=== PATIENT | female | born 1960 | race Caucasian/White ===

== ENCOUNTER 2020-12-19 22:06 | Emergency (ER) | payer OTHER ==
[~2020-12-19] VITALS: Ht 167.6 cm; Wt 96.8 kg
--- NOTE | 2020-12-19 22:10 | PHYS DOC ---
General Adult HPI: HPI: ".. I ve been having really bad abdomen pain.. nausea.. did eat some chip beef before it started..." Patient is a 60 year old female who presents with above hx and complaints right upper quadrant abdomen pain. Pain started right after eating chipped beef. Patient denies any intake of bad food. No history of previous gallbladder disease. No history of gastritis. Normally follows at [place]. No history recent travel. No history of severe ill contacts. No family history of gallbladder disease. Review of Systems: Review of Systems: Constitutional: Denies fever or chills Eyes: Denies change in visual acuity HENT: Denies nasal congestion or sore throat Respiratory: Denies cough or shortness of breath Cardiovascular: Denies chest pain or edema GI: Complains of severe right upper quadrant abdominal pain, nausea,. Denies vomiting, bloody stools or diarrhea . Some history of constipation. : Denies dysuria Musculoskeletal: Denies back pain or joint pain Integument: Denies rash Neurologic: Denies headache, focal weakness or sensory changes Endocrine: Denies polyuria or polydipsia Lymphatic: Denies swollen glands Psychiatric: Denies depression or anxiety Family History: Family History: Noncontributory to presentation. Current Medications: Current Meds: See nursing for home meds Allergies: Allergies: Tetracycline and atorvastatin Physical Exam: PE: Constitutional: Moderate acute distress, non-toxic appearance. [] HENT: Normocephalic, atraumatic, bilateral external ears normal, oropharynx moist, no oral exudates, nose normal. [] Eyes: PERRLA, EOMI, conjunctiva normal, no discharge. [] Neck: Normal range of motion, no tenderness, supple, no stridor. [] Cardiovascular:Heart rate regular rhythm, no murmur [] Lungs & Thorax: Bilateral breath sounds clear to auscultation [] Abdomen: Bowel sounds normal, soft, right upper quadrant tenderness, no masses, no pulsatile masses. Right upper quadrant Skin: Warm, dry, no erythema, no rash. [] Back: No tenderness, no CVA tenderness. [] Extremities: No tenderness, no cyanosis, no clubbing, ROM intact, no edema. [] No cording appreciated. No psoas sign. Neurologic: Alert and oriented X 3, normal motor function, normal sensory function, no focal deficits noted. [] Psychologic: Affect normal, judgement normal, mood normal. [] EKG: EKG: My interpretation EKG shows a sinus rhythm at 76 bpm. There is slightly prolonged QT interval at 442 ms, QTC is 502 ms [] Radiology/Procedures: Radiology/Procedures: [address] [address] IMAGING REPORT Signed PATIENT: CHRISTOPHE RUSS JACCOUNT: [id number] : 1960 LOCATION: ER AGE: 60 SEX: F EXAM STATUS: REG ER ORD. PHYSICIAN: JANETT RAMOS MD REASON: Abdomen pain PROCEDURE: ACUTE ABDOMEN SERIES Exam: Acute abdominal series INDICATION: Abdominal pain TECHNIQUE: Frontal view of the chest with upright and supine views the abdomen Comparisons: None FINDINGS: The cardiomediastinal silhouette and pulmonary vessels are within normal limits. The lung and pleural spaces are clear. Air and stool are noted throughout the colon to level the rectum in a nonobstructive bowel gas pattern. No suspicious masses or calcifications. Visualized osseous structures are unremarkable. IMPRESSION: 1. No acute cardiopulmonary process. 2. Nonobstructive bowel gas pattern. Electronically signed by: Felipe Pineda MD (12/19/2020 10:51 PM) [facility] DICTATED AND SIGNED BY: FELIPE PINEDA MD DATE: 12/19/208 CC: BISHNU IBARRA; JANETT RAMOS MD ~MTH0 0 [][address] [address] IMAGING REPORT Signed PATIENT: CHRISTOPHE RUSSCOUNT: [id number] : 1960 LOCATION: ER AGE: 60 SEX: F EXAM STATUS: REG ER ORD. PHYSICIAN: JANETT RAMOS MD REASON: Abomen pain , rt upper Omni 300 75cc PROCEDURE: CT ABD PELV W/ORAL&IV CONTRAST Exam: CT of abdomen and pelvis with contrast INDICATION: Abdominal pain, right upper TECHNIQUE: Sequential axial images through the abdomen and pelvis obtained fol lowing the administration of 74 mL of Isovue-370 IV contrast. Sagittal and coronal reformatted images were reconstructed from the axial data and reviewed. Comparisons: None FINDINGS: Heart size is normal. No pericardial effusion. Strandy opacities at dependent portion lungs likely cyst. No pleural effusion. Mild diffuse hepatic steatosis. Spleen, pancreas, and adrenals are unremarkable. Gallbladder is mildly distended. No perinephric inflammation or hydronephrosis. No renal or ureteral calculi are identified. Bladder is distended and appears thin-walled. Uterus is not enlarged. No abnormal adnexal mass. Large and small bowel are unremarkable. Appendix is normal. No free intra- abdominal air or fluid. No obstruction. Abdominal aorta has a normal course caliber. Abdominal vasculature is patent. No enlarged intra-abdominal lymph nodes are identified. No suspicious osseous lesions or acute fractures. IMPRESSION: 1. Gallbladder is distended. Correlate with symptomatology to determine the need for further evaluation with ultrasound. 2. Mild hepatic steatosis. Exposure: One or more of the following in the visualized dose reduction techniques were utilized for this examination: 1. Automated exposure control 2. Adjustment of the MA and/or KV according to patient size 3. Use of iterative of reconstructive technique Electronically signed by: Felipe Pineda MD (12/19/2020 11:54 PM) [facility] DICTATED AND SIGNED BY: FELIPE PINEDA MD DATE: 12/19/20 2029 CC: BISHNU IBARRA; JANETT RAMOS MD ~MTH0 0 Heart Score: HEART Score for Chest Pain: HEART Score for Chest Pain Response (Comments) Value History Slighlty/Non-Suspicious 0 ECG Normal 0 Age >45 - < 65 1 Risk Factors 1 or 2 Risk Factors 1 Troponin < Normal Limit 0 Total 2 Risk Factors: Risk Factors: DM, Current or recent (<one month) smoker, HTN, HLP, family history of CAD, obesity. Risk Scores: Score 0 - 3: 2.5% MACE over next 6 weeks - Discharge Home Score 4 - 6: 20.3% MACE over next 6 weeks - Admit for Clinical Observation Score 7 - 10: 72.7% MACE over next 6 weeks - Early Invasive Strategies Course & Med Decision Making: Course & Med Decision Making Pertinent Labs and Imaging studies reviewed. (See chart for details) Patient symptoms improved during ED stay. Declined admission or transfer. Patient plan is to follow-up with primary care and consider outpatient testing for gallbladder function such as ultrasound and PIPIDA scan. Patient return if any concerns. Patient push fruit juices. Clear fluid diet for the next 48 hours. May take Pepcid 20 mg twice a day. May take Zofran 8 mg up to 4 times a day for nausea vomiting. Patient return if any concerns. Impression: 1. Abdomen pain 2. Biliary colic 3. Elevated glucose 158 4. Elevated AST and ALT 260 and 167 [] Dragon Disclaimer: Dragon Disclaimer: This electronic medical record was generated, in whole or in part, using a voice recognition dictation system. Departure Departure: Referrals: BISHNU IBARRA (PCP) Attending Signature Attending Signature I have participated in the care of this patient and I have reviewed and agree with all pertinent clinical information above including history, exam, and recommendations. Dragon Disclaimer This chart was dictated in whole or in part using Voice Recognition software in a busy, high-work load, and often noisy Emergency Department environment. It may contain unintended and wholly unrecognized errors or omissions. Dragon Disclaimer This chart was dictated in whole or in part using Voice Recognition software in a busy, high-work load, and often noisy Emergency Department environment. It may contain unintended and wholly unrecognized errors or omissions. JANETT RAMOS MD Dec 19, 2020 22:10
[2020-12-19] MEDS ORDERED: ONDANSETRON PF 4 MG/2 ML VIAL. IVP ONE (22:30)
[2020-12-19] MEDS ORDERED: IV RINGERS SOLUTION,LACTATED 1,000 ML IV SCH (22:30)
[2020-12-19] MEDS ORDERED: FAMOTIDINE 20 MG/2 ML VIAL IVP ONE (22:30)
[2020-12-19] MEDS ORDERED: KETOROLAC 30 MG/ML VIAL. IVP ONE (22:30)
[2020-12-19] MEDS ORDERED: IOHEXOL 240 MG/ML 50ML VIAL. ONE (22:35)
[2020-12-19] MEDS ORDERED: IOHEXOL 300 MG/ML 75 ML VIAL. IV ONE (22:45)
--- NOTE | 2020-12-19 22:53 | RAD ---
Exam: Acute abdominal series INDICATION: Abdominal pain TECHNIQUE: Frontal view of the chest with upright and supine views the abdomen Comparisons: None FINDINGS: The cardiomediastinal silhouette and pulmonary vessels are within normal limits. The lung and pleural spaces are clear. Air and stool are noted throughout the colon to level the rectum in a nonobstructive bowel gas patter n. No suspicious masses or calcifications. Visualized osseous structures are unremarkable. IMPRESSION: 1. No acute cardiopulmonary process. 2. Nonobstructive bowel gas pattern. Electronically signed by: Felipe Jamison MD (12/19/2020 10:51 PM) [facility]
[2020-12-19 22:55] LABS: BASO # 0.1 x10^3/uL (0.0-0.2); BASO % 1 % (0-3); EOS # 0.1 x10^3/uL (0.0-0.7); EOS % 1 % (0-3); HEMATOCRIT 43.2 % (36.0-47.0); HEMOGLOBIN 14.7 g/dL (12.0-15.5); LYMPH % 22 % (24-48); MEAN CORPUSCULAR HEMOGLOBIN 29 pg (25-35); MEAN CORPUSCULAR HGB CONC 34 g/dL (31-37); MEAN CORPUSCULAR VOLUME 86 fL (79-100); MONO # 1.3 x10^3/uL (0.0-1.1); MONO % 9 % (0-9); NEUT # 9.1 x10^3uL (1.8-7.7); NEUT % 67 % (31-73); PLATELET COUNT 229 x10^3/uL (140-400); RED BLOOD COUNT 5.01 x10^6/uL (3.50-5.40); RED CELL DISTRIBUTION WIDTH 14.1 % (11.5-14.5); WHITE BLOOD COUNT 13.6 x10^3/uL (4.0-11.0)
[2020-12-19 23:00] LABS: CALCIUM 9.1 mg/dL (8.5-10.1); CREATININE 1.1 mg/dL (0.6-1.0)
[2020-12-19] MEDS ORDERED: CONTRAST GIVEN. MC PRN (23:00)
[2020-12-19 23:06] LABS: ALBUMIN 4.3 g/dL (3.4-5.0); DIRECT BILIRUBIN 0.8 mg/dL (0.0-0.2); TOTAL BILIRUBIN 1.4 mg/dL (0.2-1.0); TOTAL PROTEIN 7.7 g/dL (6.4-8.2)
[2020-12-19 23:11] LABS: BACTERIA,URINE FEW /HPF (0-FEW); BILIRUBIN,URINE NEG (NEG); CLARITY,URINE HAZY; COLOR,URINE YELLOW; GLUCOSE,URINE NEG (NEG); NITRITE,URINE NEG (NEG); RBC,URINE 0 /HPF (0-2); SQUAMOUS EPITHELIAL CELL,UR FEW /LPF
--- NOTE | 2020-12-19 23:56 | RAD ---
Exam: CT of abdomen and pelvis with contrast INDICATION: Abdominal pain, right upper TECHNIQUE: Sequential axial images through the abdomen and pelvis obtained following the administrati on of 74 mL of Isovue-370 IV contrast. Sagittal and coronal reformatted images were reconstructed fro m the axial data and reviewed. Comparisons: None FINDINGS: Heart size is normal. No pericardial effusion. Strandy opacities at dependent portion lungs likely [facility] st. No pleural effusion. Mild diffuse hepatic steatosis. Spleen, pancreas, and adrenals are unremarkable. Gallbladder is mildl y distended. No perinephric inflammation or hydronephrosis. No renal or ureteral calculi are identified. Bladder is distended and appears thin-walled. Uterus is not enlarged. No abnormal adnexal mass. Large and small bowel are unremarkable. Appendix is normal. No free intra-abdominal air or fluid. No obstruction. Abdominal aorta has a normal course caliber. Abdominal vasculature is patent. No enlarged intra-abdominal lymph nodes are identified. No suspicious osseous lesions or acute fractures. IMPRESSION: 1. Gallbladder is distended. Correlate with symptomatology to determine the need for further evaluat ion with ultrasound. 2. Mild hepatic steatosis. Exposure: One or more of the following in the visualized dose reduction techniques were utilized for this examination: 1. Automated exposure control 2. Adjustment of the MA and/or KV according to patient size 3. Use of iterative of reconstructive technique Electronically signed by: Felipe Jamison MD (12/19/2020 11:54 PM) [facility]
--- NOTE | 2020-12-20 00:52 | EKG ---
[address] [address] Test Date: 2020-12-19 Test Time: 22:44:29 Pat Name: CHRISTOPHE RUSS Department: Room: Gender: F Rn Military: ALYSA : 1960 Requested By: JANETT RAMOS Order Number: [id number] Reading MD: Measurements Intervals [place] Rate: 76 P: 31 PA: 156 QRS: 50 QRSD: 94 T: 47 QT: 442 QTc: 502 Interpretive Statements SINUS RHYTHM PROLONGED QT NO SPECIFIC ECG ABNORMALITIES RI6.02 No previous ECG available for comparison
[2020-12-20 00:54] VITALS: BP 146/60
[2020-12-20] MEDS ORDERED: MAGNESIUM HYDROXIDE 2,400 MG/30 ML ORAL.SUSP. ONE (01:10)
[2020-12-20] MEDS ORDERED: MAGNESIUM HYDROXIDE 2,400 MG/30 ML ORAL.SUSP. PO ONE (05:45)
== END 2020-12-20 01:20 | disposition home or self-care (01) ==
LOC: ER 22:06
DX: K80.50 Calculus of bile duct without cholangitis or cholecystitis without obstruction (principal); R10.11 Right upper quadrant pain; R79.89 Other specified abnormal findings of blood chemistry; R11.2 Nausea with vomiting, unspecified
CPT/HCPCS: 36415; 74022; 74177; 80048; 80076; 81001; 82150; 82550; 83690; 84484; 85025; 85610; 85730; 87086; 93005; 96361; 96374; 96375; 99285; J1885; J2405; J3490; J7120; Q9967

== ENCOUNTER → 2021-01-03 | Outpatient (CLI) | payer OTHER ==
[2020-12-20 00:54] VITALS: BP 146/60
--- NOTE | 2021-01-03 09:08 | RAD ---
Examination: Ultrasound abdomen HISTORY: History of distended gallbladder COMPARISON: None available FINDINGS: The liver length measures 19.6 cm. There is mild increased echogenicity identified throughout the nicolás er likely hepatic steatosis. The gallbladder is mildly distended.Few echogenicities identified within the gallbladder likely galls tones. The gallbladder wall thickness measures 1 mm. The right kidney measures 10.6 x 4.3 x 3.7 cm. T he left kidney measures 10.9 x 5.0 x 4.8 cm. The common bile duct measures 1.6 mm in transverse dimen eboni. The spleen measures 12.8 cm. The visualized pancreas grossly appears unremarkable visualized aorta, IVC within normal limits of di mension. IMPRESSION: 1. Hepatic steatosis. 2. Mild hepatosplenomegaly. 3. Cholelithiasis. Electronically signed by: Duke Beasley MD (01/03/2021 9:05 AM) [id number]
== END ==
LOC: US 07:46
DX: K80.20 Calculus of gallbladder without cholecystitis without obstruction (principal); K76.0 Fatty (change of) liver, not elsewhere classified; R16.2 Hepatomegaly with splenomegaly, not elsewhere classified; K82.8 Other specified diseases of gallbladder
CPT/HCPCS: 76700